=== PATIENT | male | born 1965 | race Caucasian/White ===

== ENCOUNTER 2019-05-26 09:25 | Emergency (ER) | payer SELFPAY ==
--- NOTE | 2019-05-26 10:58 | EDM.PDOC ---
ED HPI GENERAL MEDICAL PROBLEM - General Chief Complaint: ENT Problem Stated Complaint: [facility] Time Seen by Provider: 05/26/19 09:53 Source of Information: Reports: Patient, RN Notes Reviewed - History of Present Illness INITIAL COMMENTS - FREE TEXT/NARRATIVE: 53-year-old male in with right-sided nosebleed. 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 This was draining mostly anterior but then with pressure it was running down the back of his throat as well. History of any recent nosebleeds. Been recently ill in any way. Is not take blood thinners. - Related Data Allergies Allergy/AdvReac Type Severity Reaction Status Date / Time No Known Allergies Allergy Verified 05/26/19 09:33 Home Meds: Home Meds . [No Known Home Meds] 05/26/19 [History] Past Medical History - Past Health History Medical/Surgical History: Denies Medical/Surgical History Social & Family History - Tobacco Use Smoking Status *Q: Never Smoker - Recreational Drug Use Recreational Drug Use: No ED ROS ENT - Review of Systems Review Of Systems: See Below Constitutional: Denies: Fever, Chills, Diaphoresis HEENT: Reports: Nosebleed Respiratory: Reports: No Symptoms Cardiovascular: Denies: Chest Pain GI/Abdominal: Denies: Abdominal Pain, Nausea, Vomiting Musculoskeletal: Reports: No Symptoms Skin: Reports: No Symptoms Neurological: Reports: No Symptoms ED EXAM, ENT - Physical Exam Exam: See Below General Appearance: Alert, Anxious Eye Exam: Bilateral Eye: PERRL Nose: No: Active Bleeding (No active bleeding at time of initial eval here in the ED. There was visible an area of swelling inflammation right mid septum. Left nares clear, throat clear) Mouth/Throat: Normal Inspection Head: Atraumatic. No: Facial Swelling Neck: Supple Respiratory/Chest: No Respiratory Distress, Lungs Clear, Normal Breath Sounds Cardiovascular: Regular Rate, Rhythm ED ENT PROCEDURES - Epistaxis Procedure Indication: Epistaxis Recent septal/nasal surgery: No Site of bleeding: Right Nare Topical Meds: Topical Cocaine Chemical cautery: Silver Nitrate Topical, Other (No further bleeding) Course - Vital Signs Last Recorded V/S: Last Vital Signs Temp 98.4 F 05/26/19 09:31 Pulse 66 05/26/19 09:31 Resp 16 05/26/19 09:31 BP 162/94 H 05/26/19 09:31 Pulse Ox 98 05/26/19 09:31 - Orders/Labs/Meds Meds: Medications Discontinued Medications Generic Name Dose Route Start Last Admin Trade Name Cory PRN Reason Stop Dose Admin Cocaine HCl 4 ml 05/26/19 10:02 05/26/19 10:14 Cocaine Hcl TOP 05/26/19 10:03 4 ml ONETIME ONE Administration Departure - Departure Time of Disposition: 10:56 Disposition: Home, Self-Care 01 Condition: Fair Clinical Impression: Epistaxis - Discharge Information Instructions: Nosebleed, [id number] Referrals: PCP,None [Primary Care Provider] - Forms: ED Department Discharge Additional Instructions: Pressure if needed for any further bleeding. This will take about 3 to 4 days to heal completely so avoid blowing, picking or anything else that could start his up again. Vaseline to distal nose 2 to 3 times daily for moisturization. Return to ED as needed. Sepsis Event Note - Evaluation Sepsis Screening Result: No Definite Risk - Focused Exam Vital Signs: Vital Signs Temp Pulse Resp BP Pulse Ox 05/26/19 09:31 98.4 F 66 16 162/94 H 98 Date Exam was Performed: 05/26/19 Time Exam was Performed: 13:55
== END 2019-05-26 11:05 | disposition home or self-care (01) ==
LOC: JD.ED 09:25
DX: R04.0 Epistaxis (principal)
CPT/HCPCS: 12001; 30901; 99282; 99283